=== PATIENT | male | born 1935 | race Caucasian/White ===

== ENCOUNTER 2017-05-26 22:24 | Emergency (ER) | payer MEDICARE, OTHER ==
--- NOTE | 2017-05-26 22:34 | EDM.PDOC ---
ED HPI GENERAL MEDICAL PROBLEM - General Chief Complaint: Head Injury Stated Complaint: headache Time Seen by Provider: 05/26/17 22:32 - History of Present Illness INITIAL COMMENTS - FREE TEXT/NARRATIVE: 82-year-old male presents emergency room with headache. This headache has been present for a week progressively getting worse. He has some neck discomfort with it as well he is not aware and the family is not aware of any recent falls or trauma. He has not had any numbness or speech difficulty. He has not had any chest pain chest pressure breathing difficulties or shortness of breath. The patient is here with his and his son who provided much of the history as the patient has some degree of dementia. Head Pain Score (Numeric/FACES): 10 - Related Data Allergies Allergy/AdvReac Type Severity Reaction Status Date / Time Penicillins Allergy Cannot Verified 05/26/17 22:36 Remember Home Meds: Home Meds Amiodarone [Cordarone] 100 mg PO DAILY 04/18/14 [History] Aspirin [Halfprin] 81 mg PO ASDIRECTED 04/18/14 [History] Carvedilol [Coreg] 3.125 mg PO BID 04/18/14 [History] Furosemide [Lasix] 20 mg PO ASDIRECTED 04/18/14 [History] Multivitamin [Daily Multiple Vitamin] 1 tab PO DAILY 04/18/14 [History] Nitroglycerin [Nitrostat] 0.4 mg SL ASDIRECTED PRN 04/18/14 [History] PARoxetine [Paxil] 10 mg PO DAILY 04/18/14 [History] Tamsulosin [Tamsulosin 24 Hr] 0.4 mg PO DAILY 04/18/14 [History] Insulin Aspart [Novolog Flexpen] 05/26/17 [History] Insulin Aspart [Novolog Flexpen] 6 units SUBCUT BID 05/26/17 [History] Insulin Detemir [Levemir] 26 units SUBCUT QAM 05/26/17 [History] Lactase [Dairy Relief] 3,000 units PO DAILY 05/26/17 [History] Potassium Chloride 10 meq PO BID 05/26/17 [History] Rosuvastatin [Crestor] 10 mg PO DAILY 05/26/17 [History] levETIRAcetam [Keppra] 500 mg PO BID 05/26/17 [History] Social & Family History - Tobacco Use Smoking Status *Q: Former Smoker Years of Tobacco use: 40 Used Tobacco, but Quit: Yes Month Tobacco Last Used: 15 years ago Second Hand Smoke Exposure: No - Alcohol Use Days Per Week of Alcohol Use: 0 - Recreational Drug Use Recreational Drug Use: No ED ROS GENERAL - Review of Systems Review Of Systems: See Below Constitutional: Reports: No Symptoms HEENT: Reports: No Symptoms Respiratory: Reports: No Symptoms Cardiovascular: Reports: No Symptoms Endocrine: Reports: No Symptoms GI/Abdominal: Reports: No Symptoms : Reports: No Symptoms Musculoskeletal: Reports: Neck Pain Skin: Reports: No Symptoms Neurological: Reports: Headache. Denies: Dizziness, Trouble Speaking, Difficulty Walking ED EXAM, HEAD INJURY - Physical Exam Exam: See Below Exam Limited By: No Limitations General Appearance: Alert, No Apparent Distress Head: Atraumatic, Normocephalic Eyes: Bilateral Eye: Normal Inspection Ears: Normal External Exam, Normal Canal, Normal TMs Nose: Normal Inspection, Normal Mucousa Throat/Mouth: Normal Inspection, Normal Lips, Normal Oropharynx, Normal Voice, No Airway Compromise, Other (Dentures noted both upper and lower) Neck: Normal Alignment, Limited Range of Motion, Spinous Processes Tender, Stiff Neck, Tender Midline (Mostly in the low cervical region) Respiratory: No Respiratory Distress, Lungs Clear, Normal Breath Sounds Cardiovascular: Regular Rate, Rhythm, Systolic Murmur (grade 2/6 holosystolic murmur this is not new). No: No Murmur GI/Abdominal Exam: Normal Bowel Sounds, Soft, Non-Tender EKG INTERPRETATION EKG Date: 05/26/17 Rhythm: NSR Beatty: LAD-Left Beatty Deviation P-Wave: Present QRS: Other (Interventricular conduction delay versus incomplete left bundle branch block) ST-T: Other (Isoelectric T waves in aVL nonspecific ST-T changes) Comparison: No Change (No change noted from April 18, 2014) EKG Interpretation Comments: Abnormal EKG Course - Vital Signs Last Recorded V/S: Last Vital Signs Temp 36.7 C 05/26/17 22:32 Pulse 90 05/26/17 22:32 Resp 12 05/26/17 22:32 BP 153/71 H 05/26/17 22:32 Pulse Ox 92 L 05/26/17 22:32 - Orders/Labs/Meds Orders: Active Orders 24 hr Category Date Time Status EKG Documentation Completion [RC] STAT Care 05/26/17 22:53 Active Cervical Spine wo Cont [CT] Stat Exams 05/26/17 22:50 Taken Head wo Cont [CT] Stat Exams 05/26/17 22:50 Taken CBC WITH MANUAL DIFF [HEME] Stat Lab 05/26/17 22:51 Results URINALYSIS W/MICROSCOPIC [UA W/MICROSCOPIC] [URIN] Stat Lab 05/27/17 01:05 Results Labs: Laboratory Tests 05/27/17 05/27/17 05/27/17 Range/Units 00:15 00:15 01:05 WBC 9.36 H (4.23-9.07) K/mm3 RBC 5.19 (4.63-6.08) M/mm3 Hgb 15.7 (13.7-17.5) gm/L Hct 46.6 (40.1-51.0) % MCV 89.8 (79.0-92.2) fl MCH 30.3 (25.7-32.2) pg MCHC 33.7 (32.2-35.5) g/dl RDW Std Deviation 43.4 (35.1-43.9) fL Plt Count 92 L (163-337) K/mm3 MPV 9.8 (9.4-12.3) fl Sodium 137 (136-145) mEq/L Potassium 5.1 (3.5-5.1) mEq/L Chloride 103 (98-107) mEq/L Carbon Dioxide 29 (21-32) mEq/L Anion Gap 10.1 (5-15) BUN 31 H (7-18) mg/dL Creatinine 1.5 H (0.7-1.3) mg/dL Est Cr Clr Drug Dosing 40.56 mL/min Estimated GFR (MDRD) 45 (>60) mL/min BUN/Creatinine Ratio 20.7 H (14-18) Glucose 255 H (83-115) mg/dL Calcium 9.9 (8.5-10.1) mg/dL Total Bilirubin 0.7 (0.2-1.0) mg/dL AST 21 (15-37) U/L ALT 25 (16-63) U/L Alkaline Phosphatase 80 (46-116) U/L Troponin I < 0.017 (0.00-0.056) ng/mL Total Protein 7.7 (6.4-8.2) g/dl Albumin 3.4 (3.4-5.0) g/dl Globulin 4.3 gm/dL Albumin/Globulin Ratio 0.8 L (1-2) Urine Color Yellow (Yellow) Urine Appearance Clear (Clear) Urine pH 7.0 (5.0-8.0) Ur Specific [place] 1.020 (1.005-1.030) Urine Protein 2+ H (Negative) Urine Glucose (UA) 1+ H (Negative) Urine Ketones Negative (Negative) Urine Occult Blood Trace-lysed H (Negative) Urine Nitrite Negative (Negative) Urine Bilirubin Negative (Negative) Urine Urobilinogen 0.2 (0.2-1.0) Ur Leukocyte Esterase Negative (Negative) Meds: Medications Discontinued Medications Generic Name Dose Route Start Last Admin Trade Name Freq PRN Reason Stop Dose Admin Acetaminophen 650 mg 05/27/17 00:21 05/27/17 00:35 Tylenol PO 05/27/17 00:22 650 mg NOW ONE Administration - Re-Assessments/Exams Free Text/Narrative Re-Assessment/Exam: 05/27/17 01:[address] was unremarkable C-spine shows no acute changes however there significant degenerative changes he has broad-based the disc bulges posteriorly at C2-3 C3-4 C4-5 C5-6 and C6-7 the 1 at C5-6 is causing significant central canal stenosis. Laboratory evaluation troponin negative his potassiums little high at 5.1 however this was a hemolyzed specimen I did discuss this with the lab. We are waiting on a repeat CBC because the platelets were all clumped. Patient had his c-collar removed and is been given Tylenol and this is helping him. EKG shows no acute changes chest x-ray no acute changes Departure - Departure Time of Disposition: 01:57 Disposition: Home, Self-Care 01 Clinical Impression: Cephalgia, Neck pain - Discharge Information Referrals: Douglas Phillips MD [Primary Care Provider] - Forms: ED Department Discharge Additional Instructions: Return to emergency room if any questions problems worsening symptoms. Follow-up he regular physician next week. Discuss if an MRI of the neck would be beneficial. This would be done to further evaluate the spinal stenosis seen at C5-6. Use Tylenol 650 mg every 6-8 hours as needed. - My Orders Last 24 Hours: My Active Orders 05/26/17 22:50 Cervical Spine wo Cont [CT] Stat Head wo Cont [CT] Stat 05/26/17 22:51 CBC WITH MANUAL DIFF [HEME] Stat 05/26/17 22:53 EKG Documentation Completion [RC] STAT 05/27/17 01:05 URINALYSIS W/MICROSCOPIC [UA W/MICROSCOPIC] [URIN] Stat - Assessment/Plan Last 24 Hours: My Active Orders 05/26/17 22:50 Cervical Spine wo Cont [CT] Stat Head wo Cont [CT] Stat 05/26/17 22:51 CBC WITH MANUAL DIFF [HEME] Stat 05/26/17 22:53 EKG Documentation Completion [RC] STAT 05/27/17 01:05 URINALYSIS W/MICROSCOPIC [UA W/MICROSCOPIC] [URIN] Stat
[2017-05-26 22:36] VITALS: BP 153/71
[2017-05-27] MEDS ORDERED: Acetaminophen 325 MG Tab PO ONE (00:21)
--- NOTE | 2017-05-27 08:43 | CT ---
CT cervical spine Technique: Multiple axial sections through the cervical spine were obtained. Reconstructed sagittal and coronal images were reviewed. Comparison: No prior study. Findings: Degenerative change noted between C1 and the dens. Diffuse anterior osteophytes are seen. Diffuse disc bulging with calcification seen at C2-C3 through C4-C5. Posterior osteophytes noted at C5-C6. Calcification seen within bulging discs at C6-C7 and C7-T1. Mild disc space narrowing noted at C7-T1. Calcification seen within the ligamentum nucha. Mild left-sided neural foraminal stenosis noted at C3-C4. Moderate bilateral neural foraminal stenosis noted at C4-C5 with mild central canal stenosis. Moderate central canal stenosis is seen with minimal left-sided neural foraminal stenosis noted at C5-C6. Mild left-sided neural foraminal stenosis is noted at C6-C7 with mild central canal stenosis. No fracture is appreciated. No abnormal subluxation is seen. Impression: 1. Diffuse degenerative change with neural foraminal narrowing and several levels of central canal stenosis. 2. Nothing acute is appreciated. Diagnostic code #3 Agree with preliminary report issued by [facility] ([facility] preliminary report dictated on 05/27/17, 1:03 AM Central Time)
--- NOTE | 2017-05-27 10:42 | CT ---
Head CT Technique: Multiple axial sections through the brain were obtained. Intravenous contrast was not utilized. Comparison: Prior head CT study of 04/18/14. Findings: Ventricles along with basal cisterns and sulci over the convexities are moderately prominent. 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 Diminished density is noted within periventricular white matter and subcortical white matter compatible with small vessel ischemic demyelination change. 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 Slight areas of encephalomalacia are seen within the temporal lobes which appear old and compatible with previous trauma. No other abnormal parenchymal densities are seen. No evidence of intracranial hemorrhage. No midline shift or mass effect is seen. Mucosal thickening scattered within the ethmoid, maxillary and and frontal sinuses. No air-fluid levels are seen within the sinuses. No acute calvarial abnormality is appreciated. Impression: 1. Senescent change and other incidental findings. 2. No acute intracranial abnormality is appreciated. Diagnostic code #2 Agree with preliminary report issued by [employer], 05/27/17, 1:09 AM Central Time
== END 2017-05-27 02:06 | disposition home or self-care (01) ==
LOC: JD.ED 22:24 → SUPCPDRO 22:24 → JD.ED 05-27 02:06
DX: R51 Headache (principal); M54.2 Cervicalgia; Z88.0 Allergy status to penicillin; Z79.82 Long term (current) use of aspirin; Z79.899 Other long term (current) drug therapy; Z79.4 Long term (current) use of insulin; Z87.891 Personal history of nicotine dependence
CPT/HCPCS: 36415; 70450; 72125; 80053; 81001; 84484; 85025; 93005; 99284; A9270; 93010

== ENCOUNTER 2017-05-28 12:38 | Emergency (ER) | payer MEDICARE, OTHER ==
[2017-05-28] MEDS ORDERED: HYDROmorphone 0.5 MG/0.5 ML Syringe IVPUSH ONE ×2 (13:12→16:21)
--- NOTE | 2017-05-28 13:20 | EDM.PDOC ---
ED HPI GENERAL MEDICAL PROBLEM - General Chief Complaint: Headache Stated Complaint: [facility] Time Seen by Provider: 05/28/17 12:59 Source of Information: Reports: Patient History Limitations: Reports: No Limitations - History of Present Illness INITIAL COMMENTS - FREE TEXT/NARRATIVE: Patient is a 82-year-old male with a history of dementia who presents ED complaining of generalized headache and severe neck discomfort. Patient will not move his neck. He was seen 2 days ago in the ER with a CT of the head and cervical spine obtained. Patient states the headache has worsened since being evaluated [address] of the spine shows no acute changes although does have broad-based disc bulging noted through C2-C6 and C7. There is some central canal stenosis present. CT of the head was unremarkable. He was instructed to obtain a MRI of the neck and see PCP to have this conducted. Patient's been taking Tylenol only for the pain with little relief. There has been no recent documentation of trauma to his head or neck causing this discomfort. Of note patient states he does have to walk with assistance. This started 3 years ago after having heart surgery. He denies any fever, nausea/vomiting, vision changes , shortness of breath, chest pain, diarrhea, dysuria, weakness to the upper or lower extremities, no n/t to extremities, or any additional complaints. Per patient has mild dementia and is very high functioning with only intermittent short-term memory issues. Patient lives at home with . Headache Pain Score (Numeric/FACES): 10 - Related Data Allergies Allergy/AdvReac Type Severity Reaction Status Date / Time Penicillins Allergy Cannot Verified 05/28/17 12:47 Remember Home Meds: Home Meds Amiodarone [Cordarone] 100 mg PO DAILY 04/18/14 [History] Aspirin [Halfprin] 81 mg PO ASDIRECTED 04/18/14 [History] Carvedilol [Coreg] 3.125 mg PO BID 04/18/14 [History] Furosemide [Lasix] 20 mg PO ASDIRECTED 04/18/14 [History] Multivitamin [Daily Multiple Vitamin] 1 tab PO DAILY 04/18/14 [History] Nitroglycerin [Nitrostat] 0.4 mg SL ASDIRECTED PRN 04/18/14 [History] PARoxetine [Paxil] 10 mg PO DAILY 04/18/14 [History] Tamsulosin [Tamsulosin 24 Hr] 0.4 mg PO DAILY 04/18/14 [History] Insulin Aspart [Novolog Flexpen] 05/26/17 [History] Insulin Aspart [Novolog Flexpen] 6 units SUBCUT BID 05/26/17 [History] Insulin Detemir [Levemir] 26 units SUBCUT QAM 05/26/17 [History] Lactase [Dairy Relief] 3,000 units PO DAILY 05/26/17 [History] Potassium Chloride 10 meq PO BID 05/26/17 [History] Rosuvastatin [Crestor] 10 mg PO DAILY 05/26/17 [History] levETIRAcetam [Keppra] 500 mg PO BID 05/26/17 [History] Past Medical History HEENT History: Reports: Impaired Vision Cardiovascular History: Reports: Automatic Implantable Cardioverter Defibrillators, CAD, Heart Murmur, High Cholesterol, [place] Neurological History: Reports: Concussion Endocrine/Metabolic History: Reports: Diabetes, Type II - Past Surgical History HEENT Surgical History: Reports: Cataract Surgery GI Surgical History: Reports: Cholecystectomy Social & Family History - Tobacco Use Smoking Status *Q: Never Smoker Years of Tobacco use: 40 Used Tobacco, but Quit: Yes Month Tobacco Last Used: 15 years ago Second Hand Smoke Exposure: No - Caffeine Use Caffeine Use: Reports: Coffee - Alcohol Use Days Per Week of Alcohol Use: 0 - Recreational Drug Use Recreational Drug Use: No ED ROS GENERAL - Review of Systems Review Of Systems: ROS reveals no pertinent complaints other than HPI. - Physical Exam Exam: See Below Exam Limited By: No Limitations General Appearance: Alert, WD/WN, Moderate Distress Eye Exam: Bilateral Eye: EOMI, PERRL Ears: Hearing Grossly Normal Nose: Normal Inspection Throat/Mouth: Normal Voice, No Airway Compromise Head Exam: Atraumatic, Normocephalic Neck: Normal Inspection, Supple, Limited Range of Motion, Tender Lateral, Tender Midline, Other (nuchal rigidity present. ). No: Full Range of Motion Respiratory/Chest: No Respiratory Distress, Lungs Clear, Normal Breath Sounds, No Accessory Muscle Use, Chest Non-Tender, Other (Pacemaker to the left anterior chest. Unclear if MRI compatible or not. No card available to decipher type. ) Cardiovascular: Normal Peripheral Pulses, Regular Rate, Rhythm GI/Abdominal: Normal Bowel Sounds, Soft, Non-Tender, No Organomegaly, No Distention Neuro Exam (Abbreviated): Alert, Oriented, CN II-XII Intact, Normal Cognition, No Motor/Sensory Deficits, Other (No weakness discrepancies to the upper and lower extremities. No facial droop. Patient does move all his extremities.) Extremities: Normal Inspection, Non-Tender, No Pedal Edema, Normal Capillary Refill Psychiatric: Normal Affect, Normal Mood Skin Exam: Warm, Dry, Intact, Normal Color, No Rash ED LUMBAR PUNCTURE - Lumbar Puncture Indication: Nuchal Rigidity, Headache Consent Obtained: Other (Spouse) Position: Other (Attempted both lateral decubitus and sitting.) Prep: Sterile Drapes, Chlorhexidine Local Anesthesia - Lidocaine (Xylocaine): 1% with EPI Local Anesthetic Volume: Other (15) Vertebral Interspace: L2/L3 Spinal Needle With Stylet: 20ga, 3.5 Inch (Adult) Number of Attempts: 2 Fluid Appearance: Other (none) Complications: No (unsuccessful) Sterile Dressing: Adhesive Dressing, 4x4(s) Course - Vital Signs Last Recorded V/S: Last Vital Signs Temp 98.9 F 05/28/17 12:50 Pulse 80 05/28/17 12:50 Resp 18 05/28/17 12:50 BP 119/65 05/28/17 12:50 Pulse Ox 95 05/28/17 12:50 - Orders/Labs/Meds Labs: Laboratory Tests 05/28/17 05/28/17 05/28/17 Range/Units 13:42 13:42 13:42 WBC 10.13 H (4.23-9.07) K/mm3 RBC 5.36 (4.63-6.08) M/mm3 Hgb 16.1 (13.7-17.5) gm/L Hct 47.7 (40.1-51.0) % MCV 89.0 (79.0-92.2) fl MCH 30.0 (25.7-32.2) pg MCHC 33.8 (32.2-35.5) g/dl RDW Std Deviation 43.0 (35.1-43.9) fL Plt Count 60 L (163-337) K/mm3 MPV 10.8 (9.4-12.3) fl Neutrophils % (Manual) 75 H (40-60) % Band Neutrophils % 0 (0-10) % Lymphocytes % (Manual) 19 L (20-40) % Atypical Lymphs % 0 % Monocytes % (Manual) 6 (2-10) % Eosinophils % (Manual) 0 L (0.8-7.0) % Basophils % (Manual) 0 L (0.2-1.2) Platelet Estimate Decreased Plt Morphology Comment See note RBC Morph Comment Normal ESR 46 H (0-15) mm/hr Sodium 138 (136-145) mEq/L Potassium 4.7 (3.5-5.1) mEq/L Chloride 101 (98-107) mEq/L Carbon Dioxide 29 (21-32) mEq/L Anion Gap 12.7 (5-15) BUN 21 H (7-18) mg/dL Creatinine 1.4 H (0.7-1.3) mg/dL Est Cr Clr Drug Dosing 43.45 mL/min Estimated GFR (MDRD) 49 (>60) mL/min BUN/Creatinine Ratio 15.0 (14-18) Glucose 231 H (83-115) mg/dL POC Glucose (83-110) mg/dL Calcium 9.9 (8.5-10.1) mg/dL Total Bilirubin 0.8 (0.2-1.0) mg/dL AST 18 (15-37) U/L ALT 22 (16-63) U/L Alkaline Phosphatase 68 (46-116) U/L C-Reactive Protein 11.7 H* (<1.0) mg/dL Total Protein 7.9 (6.4-8.2) g/dl Albumin 3.2 L (3.4-5.0) g/dl Globulin 4.7 gm/dL Albumin/Globulin Ratio 0.7 L (1-2) 05/28/ Range/Units 17:50 WBC (4.23-9.07) K/mm3 RBC (4.63-6.08) M/mm3 Hgb (13.7-17.5) gm/L Hct (40.1-51.0) % MCV (79.0-92.2) fl MCH (25.7-32.2) pg MCHC (32.2-35.5) g/dl RDW Std Deviation (35.1-43.9) fL Plt Count (163-337) K/mm3 MPV (9.4-12.3) fl Neutrophils % (Manual) (40-60) % Band Neutrophils % (0-10) % Lymphocytes % (Manual) (20-40) % Atypical Lymphs % % Monocytes % (Manual) (2-10) % Eosinophils % (Manual) (0.8-7.0) % Basophils % (Manual) (0.2-1.2) Platelet Estimate Plt Morphology Comment RBC Morph Comment ESR (0-15) mm/hr Sodium (136-145) mEq/L Potassium (3.5-5.1) mEq/L Chloride (98-107) mEq/L Carbon Dioxide (21-32) mEq/L Anion Gap (5-15) BUN (7-18) mg/dL Creatinine (0.7-1.3) mg/dL Est Cr Clr Drug Dosing mL/min Estimated GFR (MDRD) (>60) mL/min BUN/Creatinine Ratio (14-18) Glucose (83-115) mg/dL POC Glucose 199 H (83-110) mg/dL Calcium (8.5-10.1) mg/dL Total Bilirubin (0.2-1.0) mg/dL AST (15-37) U/L ALT (16-63) U/L Alkaline Phosphatase (46-116) U/L C-Reactive Protein (<1.0) mg/dL Total Protein (6.4-8.2) g/dl Albumin (3.4-5.0) g/dl Globulin gm/dL Albumin/Globulin Ratio (1-2) Meds: Medications Discontinued Medications Generic Name Dose Route Start Last Admin Trade Name Freq PRN Reason Stop Dose Admin Hydrocodone Bitart/Acetaminophen 1 tab 05/28/17 15:07 05/28/17 15:14 [place] 325-5 Mg PO 05/28/17 15:08 1 tab ONETIME ONE Administration Hydromorphone HCl 0.25 mg 05/28/17 13:12 05/28/17 13:33 Dilaudid IVPUSH 05/28/17 13:13 0.25 mg ONETIME ONE Administration Hydromorphone HCl 0.25 mg 05/28/17 16:21 05/28/17 16:27 Dilaudid IVPUSH 05/28/17 16:22 0.25 mg ONETIME ONE Administration Sodium Chloride Confirm 05/28/17 18:17 05/28/17 19:21 Normal Saline Administered 05/28/17 18:18 Not Given Dose 1,000 mls @ as directed .ROUTE .STK-MED ONE Meropenem 1 gm/ Sodium 100 mls @ 200 mls/hr 05/28/17 19:35 05/28/17 20:04 Chloride IV 05/28/17 20:04 200 mls/hr ONETIME ONE Administration Vancomycin HCl 1.5 gm/ Sodium 250 mls @ 250 mls/hr 05/28/17 19:33 05/28/17 20 :49 Chloride IV 05/28/17 20:32 250 mls/hr ONETIME ONE Administration Ketamine HCl 100 mg 05/28/17 17:50 05/28/17 19:21 Ketalar IV 05/28/17 17:51 Not Given ONCALL ONE Ketamine HCl Confirm 05/28/17 18:08 05/28/17 19:21 Ketalar Administered 05/28/17 18:09 Not Given Dose 500 mg .ROUTE .STK-MED ONE Lidocaine/Epinephrine 20 ml 05/28/17 17:51 05/28/17 19:22 Xylocaine 1% With Epinephrine 1:100,000 INJECT 05/28/17 17:52 20 ml ONETIME ONE Administration Lidocaine/Epinephrine Confirm 05/28/17 18:06 05/28/17 19:21 Xylocaine 1% With Epinephrine 1:100,000 Administered 05/28/17 18:07 Not Given Dose 20 ml .ROUTE .STK-MED ONE Midazolam HCl 5 mg 05/28/17 17:50 05/28/17 19:21 Versed 1 Mg/Ml IVPUSH 05/28/17 17:51 Not Given ONCALL ONE Midazolam HCl Confirm 05/28/17 18:07 05/28/17 19:21 Versed 1 Mg/Ml Administered 05/28/17 18:08 Not Given Dose 8 mg .ROUTE .STK-MED ONE Ondansetron HCl 4 mg 05/28/17 17:50 05/28/17 18:30 Zofran IVPUSH 05/28/17 17:51 4 mg ONETIME ONE Administration Ondansetron HCl Confirm 05/28/17 18:08 05/28/17 19:21 Zofran Administered 05/28/17 18:09 Not Given Dose 4 mg .ROUTE .STK-MED ONE - Re-Assessments/Exams Free Text/Narrative Re-Assessment/Exam: Reviewed previous E.D. visit 05/26/2017. Head CT was unremarkable C-spine shows no acute changes however there significant degenerative changes he has broad- based the disc bulges posteriorly at C2-3 C3-4 C4-5 C5-6 and C6-7 the 1 at C5-6 is causing significant central canal stenosis. Laboratory evaluation troponin negative his potassiums little high at 5.1. EKG shows no acute changes chest x- ray no acute changes. Will go ahead and obtain CT of the head with worsening headache. Basic labs and studies include CBC, chem 14, CRP, ESR. IV has been established. Ordered Dilaudid 0.25 mg IVP. 05/28/17 15:07 CT head impression: Senescent changes noted above which is stable from priors head CT. 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 No acute intracranial abnormalities appreciated. Labs reviewed:Labs reviewed: White blood cell count 10.13, hemoglobin 16.1, platelet count 60 which is low, ESR 46, CRP 11.7 elevated, E Lites within normal limits, creatinine 1.4, glucose 231. I did speak with Dr. Jimena Rubio. I am concerned that this is the patient's second visit complaining of headache and neck discomfort. Although the CT of the head studies have been negative and CT of the neck shows severe degenerative changes that requires a MRI of the neck to be obtained. I'm still concerned about viral meningitis and worse case scenario subarachnoid hemorrhage or possible cavernous sinus thrombosis. Dr. Jimena Rubio will speak with the patient and determine the need for spinal tap. CXR was reveiwed. This was acutally obtained Apr revealing a dual chamber aicd. Patient's complaining of more pain to his neck. Per nursing staff he slept soundly with the administration of narcotics. Ordered [place] 5-325 one tab by mouth. This is in preparation to go home if patient does not require spinal tap.. In addition will get the ball rolling to schedule an MRI of the neck and also follow-up appointment with PCP. MRI is scheduled for 06/02/2017 for the cervical spine. Patient will need to be there by 1300 hrs. In addition appt with Dr. Sosa has been scheduled for 06/01/17 at 930 a.m. 05/28/17 16:22 per nursing staff patient is complaining of neck pain and headache. Ordered Dilaudid 0.25 mg IVP. 05/28/17 16:33 Per nursing staff patient feels better with c-collar placement and IV dilaudid. 05/28/17 17:46 Dr. Jimena Rubio has evaluated the patient. Agrees with concern of possible some other underlying cause of the headache and neck discomfort. Cannot rule out meningitis although positive note the patient does not have any fevers at this time. Patient will be moved to the trauma room for more room. Dr. Ashli Rubio will be performing the LP. Dr. Ashli Rubio did speak with patients about the procedure, risks, benefits, and alterative treatments. has agreed to go ahead with Lumbar Puncture. Consent for conscious sedation and lumbar puncture completed. 05/28/17 19:03 Lumbar Puncture unsuccessful x2. Will arrange transport to [facility] for further testing. 1906 Called [facility] and had to wait for extended period of time. Had to hang up since I had to see a patient. 05/28/17 19:[address] Baptiste and Dr. Hess with the E.D. Patient will be transported to the E.D. for spinal tap and MRI of the brain and neck. Dr. Hess has accepted the patient. Dr. Earl requested vancomycin and meropenum IV. No antivirals to be started at this time. Ambulance has been notified for transport. This maybe delayed. 05/28/17 20:[address] Hess. I forgot to share with her patient has a AICD that was implanted at [facility] unclear if MRI compatible. Still attempting to arrange transport. Patient may require transport by rotor but unclear at this point. 2021 Nursing staff states patient is going to be transported by ground ambulance. Patients O2 sats 81 % on room air. Nursing staff placed O2 via [place] O2 sats 95-95 on 1 lpm. [address] [place] ambulance has arrived for transport. Departure - Departure Time of Disposition: 21:02 Disposition: DC/Tfer to Acute Hospital 02 Condition: Fair Clinical Impression: Severe headache, Nuchal rigidity - Discharge Information Referrals: Douglas Phillips MD [Primary Care Provider] - Forms: ED Department Discharge
--- NOTE | 2017-05-28 14:13 | CT ---
Head CT Technique: Multiple axial sections through the brain were obtained. Intravenous contrast was not utilized. Comparison: Prior head CT exam of 05/26/17. Findings: Ventricles along with basal cisterns and sulci over the convexities are moderately prominent. 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 Diminished density noted within the periventricular and subcortical white matter compatible with small vessel ischemic demyelination. Small old infarct is noted within the left cerebellar hemisphere. Areas of encephalomalacia seen within the inferior temporal lobes compatible with old trauma which is stable. No other abnormal parenchymal densities are seen. No evidence of intracranial hemorrhage. No midline shift or mass effect is seen. Bone window settings were reviewed which shows mucosal thickening scattered within the frontal, ethmoid and maxillary sinuses. Impression: 1. Senescent change as noted above which is stable from prior head CT. 2. 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 3. No acute intracranial abnormality is appreciated. Diagnostic code #2
[2017-05-28] MEDS ORDERED: Acetaminophen/HYDROcodone 325-5 MG Tab PO ONE (15:07)
[2017-05-28] MEDS ORDERED: Ketamine 500 mg/10 ML MDV IV ONE (17:50)
[2017-05-28] MEDS ORDERED: Midazolam 1 MG/ML 5 ML SDV IVPUSH ONE (17:50)
[2017-05-28] MEDS ORDERED: Ondansetron 4 MG/2 ML SDV IVPUSH ONE (17:50)
[2017-05-28] MEDS ORDERED: Lidocaine 1% with EPINEPHrine 1:100,000 20 ML MDV INJECT ONE (17:51)
[2017-05-28] MEDS ORDERED: Lidocaine 1% with EPINEPHrine 1:100,000 20 ML MDV ONE (18:06)
[2017-05-28] MEDS ORDERED: Midazolam 1 MG/ML 2 ML SDV ONE (18:07)
[2017-05-28] MEDS ORDERED: Ondansetron 4 MG/2 ML SDV ONE (18:08)
[2017-05-28] MEDS ORDERED: Ketamine 500 mg/10 ML MDV ONE (18:08)
[2017-05-28] MEDS ORDERED: Sodium Chloride 0.9% 1,000 ML ONE (18:17)
[2017-05-28] MEDS ORDERED: Meropenem 1 GM in Sodium Chloride 0.9% 100 ML IV ONE (19:35)
[2017-05-28 21:54] VITALS: BP 130/64
== END 2017-05-28 21:07 ==
LOC: JD.ED 12:38
DX: R51 Headache (principal); R29.1 Meningismus; E11.9 Type 2 diabetes mellitus without complications; I25.10 Atherosclerotic heart disease of native coronary artery without angina pectoris; E78.00 Pure hypercholesterolemia, unspecified; Z95.810 Presence of automatic (implantable) cardiac defibrillator; Z87.891 Personal history of nicotine dependence; Z79.4 Long term (current) use of insulin; Z79.82 Long term (current) use of aspirin; Z79.899 Other long term (current) drug therapy; Z88.0 Allergy status to penicillin
CPT/HCPCS: 36415; 62272; 70450; 80053; 82962; 85025; 85652; 86140; 96365; 96367; 96375; 96376; 99285; A9270; J1170; J2185; J2405; J3370; J7030; J7050; 62270